=== PATIENT | female | born 1985 | race Two or more races ===

== ENCOUNTER 2022-11-04 10:45 | Inpatient (IN) | payer OTHER ==
[~2022-11-04] VITALS: Ht 152.4 cm; Wt 83.5 kg
[2022-11-04] MEDS ORDERED: SYNTHROID88 MCG PO (13:56)
[2022-11-04] MEDS ORDERED: TAMS0.4C PO (13:56)
== END 2022-11-09 10:01 | disposition home or self-care (01) | DRG 743 ==
LOC: OB/GYN 11-07 07:00 → O/R 11-07 07:14 → OB/GYN 11-07 07:14 → SURH 11-07 12:58 → OB/GYN 11-07 13:18
PROVIDERS: ADMIT Obstetrics & Gynecology Gynecologic Oncology; ATTEND Obstetrics & Gynecology Gynecologic Oncology
PROC: 0DBW0ZZ Excision of Peritoneum, Open Approach (ICD-10-PCS; 2022-11-07)
PROC: 0DBU0ZZ Excision of Omentum, Open Approach (ICD-10-PCS; 2022-11-07)
PROC: 3E1M38Z Irrigation of Peritoneal Cavity using Irrigating Substance, Percutaneous Approach (ICD-10-PCS; 2022-11-07)
PROC: 0UT90ZZ Resection of Uterus, Open Approach (ICD-10-PCS; principal; 2022-11-07 07:00)
DX: D25.9 Leiomyoma of uterus, unspecified (principal); Z20.822 Contact with and (suspected) exposure to COVID-19